=== PATIENT | female | born 1995 | race Caucasian/White ===

== ENCOUNTER 2017-09-16 21:26 | Emergency (ER) | payer OTHER, SELFPAY ==
[2017-09-16 21:26] VITALS: BP 139/79; PULSE 98; RESP 24; TEMP 37; O2SAT 94; BMI 40.0
--- NOTE | 2017-09-16 21:36 | EKG12_ITS ---
Test Reason : GENERAL ILLNESS Blood Pressure : / mmHG Vent. Rate : 070 BPM Atrial Rate : 070 BPM P-R Int : 124 ms QRS Dur : 082 ms QT Int : 378 ms P-R-T Axes : 029 038 021 degrees QTc Int : 408 ms Normal sinus rhythm Normal ECG Confirmed by CHAYO WILDER, KERON ([id number]), non linear editor ESTRELLA MCCLENDON ([id number] on 09/18/2017 10:25:02 AM Referred By: GEORGIANA Confirmed By:KERON DOMINGO MD
--- NOTE | 2017-09-16 21:42 | ED.DCSUM_ITS ---
- ER Visit Summary Date of Service: 09/16/17 Chief Complaint: Nausea and vomiting, dizzy History of Present Illness: The patient is a 22 F states she was sitting at rest night doing homework. She became nauseated and ran to the restroom. She had multiple episodes of vomiting. She does report some shortness of breath. She reports feeling lightheaded and dizzy. There is no chest pain or palpitations. She did have some mild diarrhea as well. Patient denies recent URI symptoms. She is a history of anxiety. She has an IUD in place. Physical Examination: Vital signs are unremarkable. Patient sitting upright in bed no acute distress. Head neck examination is grossly unremarkable. There is no nystagmus. Heart is regular rate and rhythm. Lung sounds are clear. Abdomen is soft nontender. Hypoactive bowel sounds are noted. Neuro exam is unremarkable. Test Results: CBC and chemistry studies normal. test is negative. EKG is sinus at 70 with normal intervals. Emergency Department Course and Treatment: She is given IV fluids and Zofran here. On repeat evaluation she feels significantly improved. She be given a prescription for Zofran at home pack for tonight. Treatment Plan: [] Disposition: Discharge Impression: Vomiting, improved This note was generated with [employer] dictation software. It may contain incorrect words, spelling, and punctuation that were not noted in review of the chart prior to signing ED Disposition - Plan for ED Patient: Chief Complaint: General Illness Referrals: Care Physician,No Primary [NON-STAFF] -
[2017-09-16] MEDS: Ondansetron 4 MG/2 ML Vial IV (21:45)
[2017-09-16 21:49] LABS: Absolute Neutrophil Count 7.4 X10^3/uL (2.0-7.7); Basophil# 0.02 X10^3/uL; Basophil% 0.2 % (0-1); Eosinophil# 0.07 X10^3/uL; Eosinophils% 0.7 % (0-5); Hematocrit 41.8 % (37-47); Hemoglobin 14.3 g/dl (12.0-15.0); Lymphocyte % 21.6 % (19-41); Mean Corp Hgb Conc 34.2 g/gl (32-36); Mean Corpuscular Hgb 30.6 pg (27.0-32.0); Mean Corpuscular Volume 89.5 fL (81-99); Mean Platelet Vol. 9.2 fl (6.2-12.0); Monocyte# 0.78 X10^3/uL; Monocyte% 7.3 % (0-10); Neutrophil # 7.44 X10^3/uL (2.7-7.7); POSITIVE COUNT NO; POSITIVE DIFFERENTIAL NO; POSITIVE MORPHOLOGY NO; Platelet Count 275 K/mm3 (150-450); RBC Distribution Width CV 12.3 % (11.6-14.6); RBC Distribution Width SD 39.9 fl (35.1-43.9); Red Blood Count 4.67 M/mm3 (4.2-5.4); White Blood Count 10.6 K/mm3 (4.4-11.0)
[2017-09-16 22:00] LABS: Anion Gap 11 (5-15); BUN 14 mg/dL (7-18); BUN/Creat Ratio 16.2 RATIO (10-20); Calcium,Total 9.4 mg/dL (8.5-10.1); Chloride 103 mmol/L (98-107); Creatinine, Serum 0.87 mg/dL (0.55-1.02); EST Glomerular Filtration Rate 89 mL/min (>60); Est Glom Filt Rate - Afr Amer 107 mL/min (>60); Estimated Creatinine Clearance 85.33 ml/min; Glucose 86 mg/dL (74-106); Potassium 3.7 mmol/L (3.5-5.1); Sodium Level 140 mmol/L (136-145)
[2017-09-16 22:13] LABS: Pregnancy, Serum, hCG Quali. NEGATIVE Negative (0-9 Nonpreg)
[2017-09-16] MEDS: 0.9% Normal Saline 1,000 ML 150 ML IV (22:24)
--- NOTE | 2017-09-16 22:41 | ED.DEP ---
ED Disposition - Plan for ED Patient: Disposition: Home or Assisted Living Chief Complaint: General Illness Instructions: ED Nausea Vomiting Prescriptions: Ondansetron [Zofran Odt] 4 mg PO Q8H PRN PRN #10 tablet PRN Reason: Nausea
[2017-09-16] MEDS: Ondansetron ODT 4 MG Tablet PO (23:03)
--- NOTE | 2017-09-16 23:06 | ED.RN ---
PT GIVEN AND EDUCATED DISCHARGE INSTRUCTIONS HOME GOING PRESCRIPTIONS AND HOME PACK. PT VERBALIZES UNDERSTANDING. IV D/C AND COVERED WITH 2X2 GAUZE AND PAPER TAPE. MINIMAL BLEEDING NOTED. PT DENIES ANY FURTHER QUESTIONS AND IS AMBUALTORY HOME BY SELF. NO ASSISTANCE FROM STAFF NEEDED.
[2017-09-16 23:08] VITALS: BP 110/79; PULSE 70; RESP 14; O2SAT 98
== END 2017-09-16 23:08 | disposition home or self-care (01) ==
PROVIDERS: Emergency Provider Emergency Medicine
DX: R11.2 Nausea with vomiting, unspecified (principal); R42 Dizziness and giddiness; R06.00 Dyspnea, unspecified; R19.7 Diarrhea, unspecified; F41.9 Anxiety disorder, unspecified; Z97.5 Presence of (intrauterine) contraceptive device
CPT/HCPCS: 80048; 84703; 85025; 93005; 96361; 96374; 99284; J7030; J7040; A4216; J2405

== ENCOUNTER 2018-11-07 05:56 | Emergency (ER) | payer OTHER, SELFPAY ==
[2018-11-07 05:57] VITALS: BP 136/72; PULSE 92; RESP 16; TEMP 36.8; O2SAT 96; BMI 37.9
--- NOTE | 2018-11-07 06:03 | ED.VISSUMM ---
- ER Visit Summary Date of Service: 11/07/18 Chief Complaint: Left medial thigh abscess History of Present Illness: The patient is a 23 F past medical history of depression and anxiety. Patient states last 2 days she is an abscess to her left medial thigh. No fever. No drainage. No prior history. Physical Examination: Well-appearing young female. Vital signs are stable. Afebrile. She does not look septic or toxic. She is in no distress. HEENT exam unremarkable. Lungs clear to auscultation bilaterally. Heart regular rhythm no murmur. Abdomen is soft and nontender. Normal bowel sounds no peritoneal signs. Patient moving all 4 extremities. Neurovascular intact. No edema. Left medial thigh proximal aspect she has about a quarter sized subcu abscess. This will need to be drained. No surrounding cellulitis. Mild tenderness to palpation. No necrotic skin. Neurologically she is awake alert with no focal motor deficits. Test Results: None Emergency Department Course and Treatment: Procedure note: Left medial thigh abscess incision and drainage. Let applied to the wound. Then locally anesthetized with subcu lidocaine. 1 inch incision was made with an 11 blade scalpel. Several cc of pus and blood were expressed. The wound was probed with forceps to break up any loculations. Packed with 1 inch gauze. Patient instructed in wound care and remove the packing in 4 days. Treatment Plan: Wound care. Warm shower hot bath. Tylenol Motrin for pain. Keflex 1 pill 4 times a day for 7 days. Follow-up with your doctor as needed. Disposition: Discharge Impression: Acute left thigh abscess Incision and drainage of abscess by her physician This note was generated with [employer] dictation software. It may contain incorrect words, spelling, and punctuation that were not noted in review of the chart prior to signing ED Disposition - Plan for ED Patient: Disposition: Home or Assisted Living Instructions: ED Abscess IandD Prescriptions: Cephalexin [Keflex] 500 mg PO Q6 #30 cap Referrals: NOT,DEFINED [NON-STAFF] - 1 Week if not improving Additional Instructions: Warm compresses to area, hot shower or soak in a warm bathtub. Tylenol Motrin for pain. The antibiotic Keflex 1 pill 4 times a day till gone.
--- NOTE | 2018-11-07 06:06 | ED.DEP ---
ED Disposition - Plan for ED Patient: Disposition: Home or Assisted Living Instructions: ED Abscess IandD Prescriptions: Cephalexin [Keflex] 500 mg PO Q6 #30 cap Referrals: NOT,DEFINED [Primary Care Provider] - 1 Week if not improving Additional Instructions: Warm compresses to area, hot shower or soak in a warm bathtub. Tylenol Motrin for pain. The antibiotic Keflex 1 pill 4 times a day till gone.
[2018-11-07] MEDS: Lidocaine/Epi/Tetracaine 50 ML 1 APPLIC TOPICAL (06:13)
[2018-11-07] MEDS: Cephalexin 250 MG Capsule 500 MG PO (06:40)
[2018-11-07 06:42] VITALS: BP 119/81; PULSE 96; O2SAT 96
== END 2018-11-07 06:43 | disposition home or self-care (01) ==
LOC: ED 06:16
PROVIDERS: Emergency Provider Emergency Medicine
DX: L02.416 Cutaneous abscess of left lower limb (principal); F32.9 Major depressive disorder, single episode, unspecified; F41.9 Anxiety disorder, unspecified
CPT/HCPCS: 10061; 10060; 99283

== ENCOUNTER 2018-11-07 16:44 | Inpatient (IN) | payer OTHER, SELFPAY ==
[2018-11-07] VITALS (7 sets, daily range): BP systolic 101–119; BP diastolic 63–69; PULSE 100–131; RESP 18; TEMP 37.5–39.1; O2SAT 93–99; BMI 37.9; BMI 38.2; BMI 37.5; BMI 37.6
--- NOTE | 2018-11-07 17:12 | ED.VISSUMM ---
- ER Visit Summary Date of Service: 11/07/18 Chief Complaint: Fever History of Present Illness: The patient is a 23 F presenting with fever. Patient was seen in the ED this morning for abscess left thigh. At that time she had I&D performed and was put on Keflex. She was advised to return to the ED if she had any fever. Her temperature was 102 at home. She did not take Tylenol or Motrin prior to arrival. She states she felt nauseated and had an episode of vomiting. Denies other complaints. Physical Examination: Vitals are stable. Temperature 99.5, heart rate 131. Alert no acute distress. HEENT exam is unremarkable. Neck is supple. Lungs are clear and equal bilaterally. Heart is regular and tachycardic Abdomen is soft nontender nondistended. Extremities left medial thigh erythema with packing in place Skin is warm and dry. No focal neurologic deficit. Remainder of exam is unremarkable. Emergency Department Course and Treatment: Patient was given IV fluids, Zofran, Tylenol. Patient was observed in the ED. She had improvement of her heart rate to 90s. She continues to be nauseated and she was given Phenergan. Due to her continued nausea she is concerned about her ability to keep her antibiotics down. She was given Ancef IV. Discussed with the hospitalist for observation. Disposition: Observation Impression: Left lower extremity cellulitis This note was generated with [employer] dictation software. It may contain incorrect words, spelling, and punctuation that were not noted in review of the chart prior to signing ED Disposition - Plan for ED Patient: Referrals: [facility] ,Out of [Primary Care Provider] -
--- NOTE | 2018-11-07 17:15 | ED.DCSUM_ITS ---
- ER Visit Summary Date of Service: 11/07/18 Chief Complaint: Fever History of Present Illness: The patient is a 23 F presenting with fever. Patient was seen in the ED this morning for abscess left thigh. At that time she had I&D performed and was put on Keflex. She was advised to return to the ED if she had any fever. Her temperature was 102 at home. She did not take Tylenol or Motrin prior to arrival. She states she felt nauseated and had an episode of vomiting. Denies other complaints. Physical Examination: Vitals are stable. Temperature 99.5, heart rate 131. Alert no acute distress. HEENT exam is unremarkable. Neck is supple. Lungs are clear and equal bilaterally. Heart is regular and tachycardic Abdomen is soft nontender nondistended. Extremities left medial thigh erythema with packing in place Skin is warm and dry. No focal neurologic deficit. Remainder of exam is unremarkable. Emergency Department Course and Treatment: Patient was given IV fluids, Zofran, Tylenol. Patient was observed in the ED. She had improvement of her heart rate to 90s. She continues to be nauseated and she was given Phenergan. Due to her continued nausea she is concerned about her ability to keep her antibiotics down. She was given Ancef IV. Discussed with the hospitalist for observation. Disposition: Observation Impression: Left lower extremity cellulitis This note was generated with [employer] dictation software. It may contain incorrect words, spelling, and punctuation that were not noted in review of the chart prior to signing ED Disposition - Plan for ED Patient: Referrals: [facility] ,Out of [Primary Care Provider] -
[2018-11-07] MEDS: 0.9% Normal Saline 1,000 ML 999 ML IV ×2 (17:26→18:28)
[2018-11-07] MEDS: Acetaminophen 500 MG Tablet 1000 MG PO (17:26)
[2018-11-07] MEDS: Ondansetron 4 MG/2 ML Vial IV (17:26)
[2018-11-07] MEDS: proMETHazine 25 MG/ML Syringe 6.25 MG IV (18:32)
--- NOTE | 2018-11-07 20:42 | ED.RN ---
PT USED CALL LIGHT TO HAVE DRESSING CHANGED TO LEFT INNER THIGH; THIS RN PLACED A NEW DRESSING AFTER CLEANING THE SITE WITH NORMAL SALINE
--- NOTE | 2018-11-07 22:03 | PCM.HP.STD ---
Problem List (1) Sepsis Status: Acute (2) Abscess Status: Acute History of Present Illness Date of Admission: 11/07/18 Chief Complaint: swelling at the left thigh. The patient is a 23 year old F with a significant history of depression and anxiety who presented to the emergency department with swelling of the left thigh that has been going on for 5 days. She presented earlier in the day and had an I&D of an abscess of the left thigh. She was discharged home on Keflex and she was instructed to come back to the ED if she has a fever of 100.4F or more . Because she developed a fever of 102.4 she came back to the emergency department. Associated with her symptoms is nausea, vomiting and chills. At emergency department patient was found to have tachycardia with highest heart rate of 131; and a fever of 102.4. T Past Medical History Medical History: Medical History (Last Updated 11/08/18 @ 07:37 by Levi Son MD) Anxiety F41.9 Depression F32.9 Allergies latex Allergy (Verified 11/07/18 16:47) Rash Home Medications: Ambulatory Orders Medication Instructions Recorded Aripiprazole [Abilify] 7.5 mg PO QHS 11/07/18 Cephalexin [Keflex] 500 mg PO Q6 11/07/18 Sertraline HCl [Zoloft] 125 mg PO QHS 11/07/18 Surgical History: - - Her wisdom tooth was pulled out Lives: - - Live at a college Smoking Status: Never smoker Alcohol: Occasional - *Family History Maternal History Items: - - Thyroid disease Paternal History Items: - - Patient does not know Review of Systems Constitutional: Reports: Chills, Fever HEENT: Denies: Head Aches, Sinus Congestion, Sinus Drainage Cardiovascular: Denies: Chest Pain, Palpitations Respiratory: Denies: Cough, Shortness of breath at rest, Sputum production Gastrointestinal: Reports: Nausea, Vomiting. Denies: Abdominal Pain Genitourinary: Denies: Dysuria Musculoskeletal: Denies: Joint Pain, Joint Tenderness Skin: Denies: Rash, Wounds Neurological: Denies: Numbness, Tingling, Focal weakness Psychiatric: Denies: Anxiety, Depression, Homicidal Ideations, Suicidal Ideations Hematologic/ Lymphatic: Denies: Easy Bruising, Easy Bleeding VTE Information - Inpt Only VTE Present on Admission: No VTE Mechan Device Prophylaxis: None VTE Pharm Prophylaxis ordered?: No Reason prophylaxis not ordered:: Treatment Not Indicated - Low risk Patient Problems: Active and Suspected Problems Sepsis (Acute) Abscess (Acute) - Physical Exam General: Alert, Oriented x3, Cooperative HEENT: Atraumatic, PERRLA, EOMI, Normocephalic Neck: Supple, No JVD, Negative Carotid Bruits Lungs: Clear to auscultation, Normal air movement Cardiovascular: No murmurs, Tachycardic Abdomen: Bowel Sounds Present, Soft, Non Tender Extremities: No edema, Capillary Refill Less than 3 Seconds, - - Left anterior thigh with induration and redness surrounding I&D area. Packing in incision; tender. Skin: No rashes, No breakdown Musculoskeletal: No Tenderness to Palpation of Joints or Extremities Neurological: Neuro grossly intact Psych/Mental Status: Normal Affect, Appropriate Vital Signs Temp Pulse Resp BP Pulse Ox 99.9 F H 114 H 18 101/63 93 11/07/18 19:52 11/07/18 17:14 11/07/18 16:47 11/07/18 16:47 11/07/18 16:47 Oxygen Delivery Method Room Air Weight: 104.3 kg Body Mass Index (BMI) 38.2 Laboratory Tests Past 24 Hrs 11/07/18 11/07/18 21:50 21:50 WBC Pending RBC Pending Hgb Pending Hct Pending MCV Pending MCH Pending MCHC Pending RDW Pending RDW Differential Pending Plt Count Pending Neut % (Auto) Pending Absolute Neuts (auto) Pending Total Counted Pending Sodium Pending Potassium Pending Chloride Pending Carbon Dioxide Pending Anion Gap Pending BUN Pending Creatinine Pending Est GFR (MDRD) Af Amer Pending Est GFR (MDRD) Non-Af Pending BUN/Creatinine Ratio Pending Glucose Pending Calcium Pending Assessment/Plan All Active Problems Sepsis (Acute) Abscess (Acute) The patient is a 23 year old F with a significant history of depression and anxiety who presented to the emergency department the second time after a first an I&D of an abscess of the left thigh and found to be in sepsis. Sepsis secondary to abscess and cellulitis With Sirs criteria of T-max of 102.4; tachycardia with heart rate of 131; with source of infection as abscess and cellulitis of left thigh. Hold Keflex p.o. since patient has nausea and vomiting. Ancef 2 g ordered at emergency department and to continue every 6 hours. Loading dose of vancomycin given. Pharmacy to dose vancomycin thereafter Oxycodone as needed for moderate pain Morphine IV as needed for severe pain Tylenol for fever of 100.7 or mild pain Gentle IV hydration As needed Zofran for nausea; ordered bowel protocol with Senokot-S in the setting of narcotic administration. Continue iodoform packing in I&D area; and Kerlix roll. Change daily. Depression and anxiety Abilify and sertraline continued. DVT prophylaxis Low risk Encouraged to ambulate. Code Visit Inpatient E&M: 41306 Init Hosp L3
[2018-11-07 22:08] LABS: Absolute Lymphocyte Count 1.28 X10^3/ul (0.83-4.51); Absolute Neutrophil Count 8.1 X10^3/uL (2.0-7.7); Basophil# 0.01 X10^3/uL; Basophil% 0.1 % (0-1); Hematocrit 37.9 % (37-47); Hemoglobin 12.9 g/dl (12.0-15.0); Lymphocyte # 1.28 X10^3/ul (4.0); Lymphocyte % 12.9 % (19-41); Mean Corpuscular Volume 91.1 fL (81-99); Mean Platelet Vol. 9.3 fl (6.2-12.0); Monocyte# 0.48 X10^3/uL; Monocyte% 4.8 % (0-10); Neutrophil # 8.14 X10^3/uL (2.7-7.7); Neutrophil % 82.1 % (47-70); POSITIVE COUNT NO; POSITIVE DIFFERENTIAL NO; POSITIVE MORPHOLOGY NO; Platelet Count 226 K/mm3 (150-450); RBC Distribution Width CV 12.4 % (11.6-14.6); RBC Distribution Width SD 41.1 fl (35.1-43.9); Red Blood Count 4.16 M/mm3 (4.2-5.4); White Blood Count 9.9 K/mm3 (4.4-11.0)
[2018-11-07 22:22] LABS: Anion Gap 5 (5-15); BUN 9 mg/dL (7-18); BUN/Creat Ratio 10.9 RATIO (10-20); Calcium,Total 8.3 mg/dL (8.5-10.1); Chloride 109 mmol/L (98-107); Creatinine, Serum 0.83 mg/dL (0.55-1.02); EST Glomerular Filtration Rate 92 mL/min (>60); Est Glom Filt Rate - Afr Amer 112 mL/min (>60); Estimated Creatinine Clearance 96.48 ml/min; Glucose 96 mg/dL (74-106); Potassium 3.8 mmol/L (3.5-5.1); Sodium Level 141 mmol/L (136-145)
[2018-11-08] VITALS (8 sets, daily range): BP systolic 96–134; BP diastolic 59–72; PULSE 73–101; RESP 16–20; TEMP 37.1–38.3; O2SAT 92–97
[2018-11-08] MEDS: 0.9% Normal Saline 1,000 ML 100 ML IV (00:31)
[2018-11-08] MEDS: oxyCODONE 5 MG Tablet PO (00:40)
[2018-11-08] MEDS: Cefazolin 2 GM in 0.9% Normal Saline 100 ML IV ×4 (00:41→22:08)
[2018-11-08] MEDS: 0.9% NaCl Peripheral Flush Adult/Peds IV (01:00)
--- NOTE | 2018-11-08 01:54 | PCM.RX.CS ---
Consult Pharmacy has been consulted to manage selected antiobiotic: Vancomycin Type of Consult: New start Suspected Infection: Skin/Soft tissue Prior Doses of Antibiotics Received/Current Regimen: Medications Vancomycin HCl 2,000 mg/ (Sodium Chloride) 540 mls @ 250 mls/hr IV Q12H SAMUEL Discontinued Medications Vancomycin HCl 2,000 mg/ (Sodium Chloride) 540 mls @ 250 mls/hr IV X1 ONE Stop: 11/08/18 01:09 Last Admin: 11/08/18 01:34 Dose: 250 mls/hr Labs: Sodium 141 mmol/L (136-145) 11/07/18 21:50 Potassium 3.8 mmol/L (3.5-5.1) 11/07/18 21:50 Chloride 109 mmol/L (98-107) H 11/07/18 21:50 Carbon Dioxide 27.0 mmol/L (21.0-32.0) 11/07/18 21:50 Anion Gap 5 (5-15) 11/07/18 21:50 BUN 9 mg/dL (7-18) 11/07/18 21:50 Creatinine 0.83 mg/dL (0.55-1.02) 11/07/18 21:50 Est GFR (MDRD) Af Amer 112 mL/min (>60) 11/07/18 21:50 Est GFR (MDRD) Non-Af 92 mL/min (>60) 11/07/18 21:50 BUN/Creatinine Ratio 10.9 RATIO (10-20) 11/07/18 21:50 Glucose 96 mg/dL (74-106) 11/07/18 21:50 Weight used for dosin.3 kg Estimated Creatinine Clearance: 96 Goal Trough: 15-20 mcg/mL Pharmacy Plan for Drug Dosing: Pharmacy Service will continue to monitor and adjust dosing as required. Follow-Up Labs: Trough Vancomycin Labs to be done on [date and time ordered]: 11/09/18 @1300
[2018-11-08 06:07] LABS: Absolute Lymphocyte Count 1.51 X10^3/ul (0.83-4.51); Absolute Neutrophil Count 5.9 X10^3/uL (2.0-7.7); Basophil# 0.01 X10^3/uL; Basophil% 0.1 % (0-1); Hematocrit 36.5 % (37-47); Hemoglobin 12.1 g/dl (12.0-15.0); Lymphocyte # 1.51 X10^3/ul (4.0); Lymphocyte % 19.1 % (19-41); Mean Corp Hgb Conc 33.2 g/gl (32-36); Mean Corpuscular Hgb 30.5 pg (27.0-32.0); Mean Corpuscular Volume 91.9 fL (81-99); Mean Platelet Vol. 9.3 fl (6.2-12.0); Monocyte# 0.44 X10^3/uL; Monocyte% 5.6 % (0-10); Neutrophil # 5.94 X10^3/uL (2.7-7.7); Neutrophil % 74.9 % (47-70); Platelet Count 220 K/mm3 (150-450); RBC Distribution Width CV 12.4 % (11.6-14.6); RBC Distribution Width SD 42.2 fl (35.1-43.9); Red Blood Count 3.97 M/mm3 (4.2-5.4); White Blood Count 7.9 K/mm3 (4.4-11.0)
[2018-11-08 06:11] LABS: POSITIVE COUNT NO; POSITIVE DIFFERENTIAL NO; POSITIVE MORPHOLOGY NO
[2018-11-08 06:28] LABS: Anion Gap 6 (5-15); BUN 8 mg/dL (7-18); BUN/Creat Ratio 8.5 RATIO (10-20); Calcium,Total 8.2 mg/dL (8.5-10.1); Chloride 107 mmol/L (98-107); Creatinine, Serum 0.94 mg/dL (0.55-1.02); EST Glomerular Filtration Rate 80 mL/min (>60); Est Glom Filt Rate - Afr Amer 97 mL/min (>60); Estimated Creatinine Clearance 85.19 ml/min; Glucose 99 mg/dL (74-106); Potassium 3.6 mmol/L (3.5-5.1); Sodium Level 139 mmol/L (136-145)
[2018-11-08] MEDS: Senna/Docusate Sodium 1 Tablet PO (09:19)
--- NOTE | 2018-11-08 12:05 | CASEMGMT ---
RN FREDERIC Face to Face with patient for initial transition planning/care coordination assessment. RN CM introduced self and role at [facility]. Patient lying in bed, alert and oriented. Patient willing to participate in assessment and is able to answer all questions appropriately. Care providers, pharmacy, and demographics verified. Patient wishes to discharge home, denies need for home health at this time. Patient states she has no further needs or concerns at this time. CM to follow for discharge planning needs that may arise. PCP: Madeleine Villalta Specialists: None [facility]erred Pharmacy: [facility] Insurance: Cign[employer] Prescription Benefit: Yes Living Will/HPOA: None LNOK: Mother Living Arrangements: Patient attend [employer] and lives in the dorms Transportation: self DME/HHC: None Disposition Plan: Patient to discharge to dorms with follow-up plans in place. Macy OWENS, RN, CM
--- NOTE | 2018-11-08 12:20 | PN_ITS ---
<Johnson Looney - Last Filed: 11/08/18 12:13> Patient Problems: Active and Suspected Problems (Last Updated 11/08/18 @ 07:37 by Levi Son MD) Sepsis (Acute) Abscess (Acute) Subjective: Still with chills/ subjective fevers/sweats. Still drainage from wound. Last fever about 0100 today. Pain - currently controlled. Pt does not know how this happened - states it spontaneously developed with no trauma to the area. She denies prior skin infections. - Physical Exam General: Alert, Oriented x3, Cooperative HEENT: Atraumatic, PERRLA, EOMI, Normocephalic Neck: Supple, No JVD, Negative Carotid Bruits Lungs: Clear to auscultation, Normal air movement Cardiovascular: Regular rate, No murmurs Abdomen: Bowel Sounds Present, Soft, Non Tender Extremities: No edema, Capillary Refill Less than 3 Seconds Skin: Ulcer/ Wound - left thigh abscess,s/p I&D, drainage, surrounding erythema. Musculoskeletal: No Tenderness to Palpation of Joints or Extremities Neurological: Cranial nerves II-XII grossly intact Psych/Mental Status: Normal Affect, Appropriate, Alert and oriented to time, place, person, mood and affect Vital Signs Temp Pulse Resp BP Pulse Ox 98.7 F 79 16 109/66 96 11/08/18 08:49 11/08/18 08:49 11/08/18 08:49 11/08/18 08:49 11/08/18 08:49 Oxygen Delivery Method Room Air Weight: 226 lb Body Mass Index (BMI) 37.5 Intake and Output for Last 24 Hours 11/06/18 11/07/18 11/08/18 23:59 23:59 23:59 Intake Total 1154 / 1154 Output Total 200 / 200 Balance 954 / 954 Laboratory Tests Past 24 Hrs 11/07/18 11/07/18 11/07/18 21:50 21:50 21:50 WBC 9.9 RBC 4.16 L Hgb 12.9 Hct 37.9 MCV 91.1 MCH 31.0 MCHC 34.0 RDW 12.4 RDW Differential 41.1 Plt Count 226 MPV 9.3 Immature Gran % (Auto) 0.100 Neut % (Auto) 82.1 H Lymph % (Auto) 12.9 L Branch % (Auto) 4.8 Eos % (Auto) 0.0 Baso % (Auto) 0.1 Absolute Neuts (auto) 8.1 H Absolute Lymphs (auto) 1.28 Total Counted Not Reportable Sodium 141 Potassium 3.8 Chloride 109 H Carbon Dioxide 27.0 Anion Gap 5 BUN 9 Creatinine 0.83 Estim Creat Clear Calc 96.48 Est GFR (MDRD) Af Amer 112 Est GFR (MDRD) Non-Af 92 BUN/Creatinine Ratio 10.9 Glucose 96 Lactic Acid 1.0 Calcium 8.3 L 11/08/18 11/08/18 05:25 05:25 WBC 7.9 RBC 3.97 L Hgb 12.1 Hct 36.5 L MCV 91.9 MCH 30.5 MCHC 33.2 RDW 12.4 RDW Differential 42.2 Plt Count 220 MPV 9.3 Immature Gran % (Auto) 0.300 Neut % (Auto) 74.9 H Lymph % (Auto) 19.1 Branch % (Auto) 5.6 Eos % (Auto) 0.0 Baso % (Auto) 0.1 Absolute Neuts (auto) 5.9 Absolute Lymphs (auto) 1.51 Total Counted Not Reportable Sodium 139 Potassium 3.6 Chloride 107 Carbon Dioxide 26.0 Anion Gap 6 BUN 8 Creatinine 0.94 Estim Creat Clear Calc 85.19 Est GFR (MDRD) Af Amer 97 Est GFR (MDRD) Non-Af 80 BUN/Creatinine Ratio 8.5 L Glucose 99 Lactic Acid Calcium 8.2 L Medical Necessity - Tobacco Use Smoking Status: Never smoker Assessment/Plan All Active Problems (Last Updated 11/08/18 @ 07:37 by Levi Son MD) Sepsis (Acute) Abscess (Acute) 1. Acute sepsis 2/2 Cellulitis and abscess left thigh - culture drainage, MRSA/MSSA screen. Vanc/Zosyn. I&D done in the ER. last fever 0100 today. Tachycardia resolved. Lactate neg. No leukocytosis. 2. Obesity - dietary consulted 3. Depression - home meds DVT ppx: early ambulation DC planning: monitor wound, follow cx, young and healthy otherwise, doubt additional homegoing needs. This patient was seen by Johnson Looney PA-C under the supervision of Dr. Cooper <Jeri Cooper - Last Filed: 11/08/18 14:24> - Physical Exam Vital Signs Temp Pulse Resp BP Pulse Ox 98.7 F 79 16 109/66 96 11/08/18 08:49 11/08/18 08:49 11/08/18 08:49 11/08/18 08:49 11/08/18 08:49 Oxygen Delivery Method Room Air Weight: 225 lb 15.934 oz Body Mass Index (BMI) 37.5 Intake and Output for Last 24 Hours 11/06/18 11/07/18 11/08/18 23:59 23:59 23:59 Intake Total 1154 / 1154 Output Total 200 / 200 Balance 954 / 954 Laboratory Tests Past 24 Hrs 11/07/18 11/07/18 11/07/18 21:50 21:50 21:50 WBC 9.9 RBC 4.16 L Hgb 12.9 Hct 37.9 MCV 91.1 MCH 31.0 MCHC 34.0 RDW 12.4 RDW Differential 41.1 Plt Count 226 MPV 9.3 Immature Gran % (Auto) 0.100 Neut % (Auto) 82.1 H Lymph % (Auto) 12.9 L Branch % (Auto) 4.8 Eos % (Auto) 0.0 Baso % (Auto) 0.1 Absolute Neuts (auto) 8.1 H Absolute Lymphs (auto) 1.28 Total Counted Not Reportable Sodium 141 Potassium 3.8 Chloride 109 H Carbon Dioxide 27.0 Anion Gap 5 BUN 9 Creatinine 0.83 Estim Creat Clear Calc 96.48 Est GFR (MDRD) Af Amer 112 Est GFR (MDRD) Non-Af 92 BUN/Creatinine Ratio 10.9 Glucose 96 Lactic Acid 1.0 Calcium 8.3 L S.aureus Protein A PCR MRSA (PCR) 11/08/18 11/08/18 11/08/18 05:25 05:25 13:10 WBC 7.9 RBC 3.97 L Hgb 12.1 Hct 36.5 L MCV 91.9 MCH 30.5 MCHC 33.2 RDW 12.4 RDW Differential 42.2 Plt Count 220 MPV 9.3 Immature Gran % (Auto) 0.300 Neut % (Auto) 74.9 H Lymph % (Auto) 19.1 Branch % (Auto) 5.6 Eos % (Auto) 0.0 Baso % (Auto) 0.1 Absolute Neuts (auto) 5.9 Absolute Lymphs (auto) 1.51 Total Counted Not Reportable Sodium 139 Potassium 3.6 Chloride 107 Carbon Dioxide 26.0 Anion Gap 6 BUN 8 Creatinine 0.94 Estim Creat Clear Calc 85.19 Est GFR (MDRD) Af Amer 97 Est GFR (MDRD) Non-Af 80 BUN/Creatinine Ratio 8.5 L Glucose 99 Lactic Acid Calcium 8.2 L S.aureus Protein A PCR Pending MRSA (PCR) Pending Assessment/Plan Patient seen by Johnson Looney PA-C under my supervision Patient was admitted with a complaint of fever. Patient had been seen in the ED the night before where she had incision and drainage of an abscess on her inner left thigh. She was sent home and told to come back to the ED if her temperature went higher than 100.4 degrees. At home, her temperature peaked at around 102 Fahrenheit so she decided to come into the ED. She denied any chills, cough or chest pain, palpitations, dizziness, diarrhea vomiting. She denied any increased drainage from the wound. She is been managed for sepsis due to left thigh abscess. o/e: Vital Signs Height 5 ft 5 in Weight: 225 lb 15.934 oz Weight in Pounds 226.0 lbs Pulse Ox 96 Temperature 98.7 F Pulse Rate 79 Respiratory Rate 16 Blood Pressure 109/66 Blood Pressure Position Semi-Fowlers General: Alert, Oriented x3, Cooperative HEENT: Atraumatic, PERRLA, EOMI, Normocephalic Neck: Supple, No JVD, Negative Carotid Bruits Lungs: Clear to auscultation, Normal air movement Cardiovascular: Regular rate, No murmurs Abdomen: Bowel Sounds Present, Soft, Non Tender Extremities: No edema, Capillary Refill Less than 3 Seconds Skin: Ulcer/ Wound - left thigh abscess,s/p I&D, drainage, wound pack in place, mild surrounding erythema delineated by body marker Musculoskeletal: No Tenderness to Palpation of Joints or Extremities Neurological: Cranial nerves II-XII grossly intact Psych/Mental Status: Normal Affect, Appropriate, Alert and oriented to time, place, person, mood and affect Plan is to continue with IV vancomycin and cefazolin. Await blood culture results. She has no leucocytosis. Encourage ambulation for DVT prophylaxis. Rest of management as per Johnson Looney PA-C's note, which I have reviewed, and endorse. Code Visit Inpatient E&M: [id number] Subs Hosp L3
--- NOTE | 2018-11-08 14:13 | NURSING ---
wound photo: left inner thigh
[2018-11-08 15:57] LABS: M R Staph aureus DNA By PCR Negative (Negative); Probe Check PASS; Specimen Processing Control PASS; Staph aureus DNA By PCR NEGATIVE (Negative)
[2018-11-08] MEDS: Acetaminophen 325 MG Tablet 650 MG PO (19:56)
[2018-11-08] MEDS: Sertraline 100 MG Tablet PO (22:07)
[2018-11-08] MEDS: ARIPiprazole 5 MG Tablet 7.5 MG PO (22:07)
[2018-11-08] MEDS: Sertraline 50 MG Tablet 25 MG PO (22:08)
[2018-11-09 01:44] VITALS: BP 102/67; PULSE 57; RESP 18; TEMP 36.6; O2SAT 96
[2018-11-09] MEDS: Cefazolin 2 GM in 0.9% Normal Saline 100 ML IV ×3 (05:41→22:18)
[2018-11-09 05:50] LABS: Anion Gap 6 (5-15); BUN 9 mg/dL (7-18); BUN/Creat Ratio 11.4 RATIO (10-20); Calcium,Total 8.5 mg/dL (8.5-10.1); Chloride 109 mmol/L (98-107); Creatinine, Serum 0.79 mg/dL (0.55-1.02); EST Glomerular Filtration Rate 98 mL/min (>60); Est Glom Filt Rate - Afr Amer 118 mL/min (>60); Estimated Creatinine Clearance 101.36 ml/min; Glucose 95 mg/dL (74-106); Potassium 3.6 mmol/L (3.5-5.1); Sodium Level 142 mmol/L (136-145)
[2018-11-09 05:56] LABS: Absolute Lymphocyte Count 2.31 X10^3/ul (0.83-4.51); Absolute Neutrophil Count 2.8 X10^3/uL (2.0-7.7); Basophil# 0.02 X10^3/uL; Basophil% 0.3 % (0-1); Eosinophil# 0.13 X10^3/uL; Eosinophils% 2.2 % (0-5); Hemoglobin 13.2 g/dl (12.0-15.0); Lymphocyte # 2.31 X10^3/ul (4.0); Lymphocyte % 39.5 % (19-41); Mean Corp Hgb Conc 33.8 g/gl (32-36); Mean Corpuscular Hgb 30.7 pg (27.0-32.0); Mean Corpuscular Volume 90.7 fL (81-99); Mean Platelet Vol. 9.5 fl (6.2-12.0); Monocyte# 0.54 X10^3/uL; Monocyte% 9.2 % (0-10); Neutrophil # 2.84 X10^3/uL (2.7-7.7); Neutrophil % 48.6 % (47-70); Platelet Count 215 K/mm3 (150-450); RBC Distribution Width CV 12.2 % (11.6-14.6); RBC Distribution Width SD 39.7 fl (35.1-43.9); White Blood Count 5.9 K/mm3 (4.4-11.0)
[2018-11-09 06:01] LABS: Differential Indicated SCAN CRITERIA MET; POSITIVE COUNT NO; POSITIVE DIFFERENTIAL NO; POSITIVE MORPHOLOGY YES
[2018-11-09 06:50] LABS: Differential Comment SCANNED
[2018-11-09] MEDS: Ondansetron 4 MG/2 ML Vial IV ×2 (07:26→18:23)
[2018-11-09 08:57] VITALS: BP 120/74; PULSE 85; RESP 16; TEMP 36.8; O2SAT 98
[2018-11-09 09:17] LABS: Hemoglobin A1c 4.8 % (4.2-6.3)
[2018-11-09] MEDS: Senna/Docusate Sodium 1 Tablet PO (09:24)
--- NOTE | 2018-11-09 11:04 | PCM.PROGNOTE ---
<Johnson Looney - Last Filed: 11/09/18 11:04> Patient Problems: Active and Suspected Problems (Last Updated 11/08/18 @ 07:37 by Levi Son MD) Sepsis (Acute) Abscess (Acute) Subjective: Subjective fever and chills overnight. Purulent drainage continues per patient, tho none appreciated during exam. No other complaints. Awaiting final C/S. - Physical Exam General: Alert, Oriented x3, Cooperative HEENT: Atraumatic, PERRLA, EOMI, Normocephalic Neck: Supple, No JVD, Negative Carotid Bruits Lungs: Clear to auscultation, Normal air movement Cardiovascular: Regular rate, No murmurs Abdomen: Bowel Sounds Present, Soft, Non Tender, Obese Extremities: No edema, Capillary Refill Less than 3 Seconds Skin: No rashes, No breakdown, - - left inner thigh abscess, mild surrounding induration, wick in place, currently no expressible drainage. Surrounding erythema drastically reduced. Musculoskeletal: No Tenderness to Palpation of Joints or Extremities Neurological: Cranial nerves II-XII grossly intact Psych/Mental Status: Normal Affect, Appropriate, Alert and oriented to time, place, person, mood and affect Vital Signs Temp Pulse Resp BP Pulse Ox 98.3 F 85 16 120/74 98 11/09/18 08:57 11/09/18 08:57 11/09/18 08:57 11/09/18 08:57 11/09/18 08:57 Oxygen Delivery Method Room Air Weight: 225 lb 15.934 oz Body Mass Index (BMI) 37.5 Intake and Output for Last 24 Hours 11/07/18 11/08/18 11/09/18 23:59 23:59 23:59 Intake Total 1154 / 1154 2850 / 2850 Output Total 200 / 200 1650 / 1650 Balance 954 / 954 1200 / 1200 Microbiology Past 72 Hours 11/08/18 13:10 Gram Stain - Final Wound - Leg, Left Wound Culture - Preliminary No growth-Final to follow Laboratory Tests Past 24 Hrs 11/08/18 11/09/18 11/09/18 13:10 05:00 05:00 WBC 5.9 RBC 4.30 Hgb 13.2 Hct 39.0 MCV 90.7 MCH 30.7 MCHC 33.8 RDW 12.2 RDW Differential 39.7 Plt Count 215 MPV 9.5 Immature Gran % (Auto) 0.200 Neut % (Auto) 48.6 Lymph % (Auto) 39.5 [place] % (Auto) 9.2 Eos % (Auto) 2.2 Baso % (Auto) 0.3 Absolute Neuts (auto) 2.8 Absolute Lymphs (auto) 2.31 Total Counted Not Reportable Differential Comment SCANNED Sodium 142 Potassium 3.6 Chloride 109 H Carbon Dioxide 27.0 Anion Gap 6 BUN 9 Creatinine 0.79 Estim Creat Clear Calc 101.36 Est GFR (MDRD) Af Amer 118 Est GFR (MDRD) Non-Af 98 BUN/Creatinine Ratio 11.4 Glucose 95 Hemoglobin A1c Calcium 8.5 S.aureus Protein A PCR NEGATIVE MRSA (PCR) Negative 11/09/18 05:00 WBC RBC Hgb Hct MCV MCH MCHC RDW RDW Differential Plt Count MPV Immature Gran % (Auto) Neut % (Auto) Lymph % (Auto) [place] % (Auto) Eos % (Auto) Baso % (Auto) Absolute Neuts (auto) Absolute Lymphs (auto) Total Counted Differential Comment Sodium Potassium Chloride Carbon Dioxide Anion Gap BUN Creatinine Estim Creat Clear Calc Est GFR (MDRD) Af Amer Est GFR (MDRD) Non-Af BUN/Creatinine Ratio Glucose Hemoglobin A1c 4.8 Calcium S.aureus Protein A PCR MRSA (PCR) Medical Necessity - Tobacco Use Smoking Status: Never smoker Assessment/Plan All Active Problems (Last Updated 11/08/18 @ 07:37 by Levi Son MD) Sepsis (Acute) Abscess (Acute) 1. Acute sepsis 2/2 Cellulitis and abscess left thigh - culture drainage, MRSA/MSSA negative. Vanc/Zosyn. I&D done in the ER.Tachycardia resolved. Await final C/S. 2. Obesity - dietary consulted. A1C negative. 3. Depression - home meds DVT ppx: early ambulation - encouraged OOB with ambulating in the halls today. DC planning: monitor wound, follow cx, young and healthy otherwise, doubt additional homegoing needs. This patient was seen by Johnson Looney PA-C under the supervision of Dr. Cooper <Jeri Cooper - Last Filed: 11/09/18 15:42> - Physical Exam Vital Signs Temp Pulse Resp BP Pulse Ox 98.5 F 74 16 100/68 98 11/09/18 14:41 11/09/18 14:41 11/09/18 14:41 11/09/18 14:41 11/09/18 14:41 Oxygen Delivery Method Room Air Weight: 225 lb 15.934 oz Body Mass Index (BMI) 37.5 Intake and Output for Last 24 Hours 11/07/18 11/08/18 11/09/18 23:59 23:59 23:59 Intake Total 1154 / 1154 2850 / 2850 Output Total 200 / 200 1650 / 1650 Balance 954 / 954 1200 / 1200 Microbiology Past 72 Hours 11/08/18 13:10 Gram Stain - Final Wound - Leg, Left Wound Culture - Preliminary No growth-Final to follow Laboratory Tests Past 24 Hrs 11/08/18 11/09/18 11/09/18 13:10 05:00 05:00 WBC 5.9 RBC 4.30 Hgb 13.2 Hct 39.0 MCV 90.7 MCH 30.7 MCHC 33.8 RDW 12.2 RDW Differential 39.7 Plt Count 215 MPV 9.5 Immature Gran % (Auto) 0.200 Neut % (Auto) 48.6 Lymph % (Auto) 39.5 [place] % (Auto) 9.2 Eos % (Auto) 2.2 Baso % (Auto) 0.3 Absolute Neuts (auto) 2.8 Absolute Lymphs (auto) 2.31 Total Counted Not Reportable Differential Comment SCANNED Sodium 142 Potassium 3.6 Chloride 109 H Carbon Dioxide 27.0 Anion Gap 6 BUN 9 Creatinine 0.79 Estim Creat Clear Calc 101.36 Est GFR (MDRD) Af Amer 118 Est GFR (MDRD) Non-Af 98 BUN/Creatinine Ratio 11.4 Glucose 95 Hemoglobin A1c Calcium 8.5 Vancomycin Trough S.aureus Protein A PCR NEGATIVE MRSA (PCR) Negative 11/09/18 11/09/18 05:00 12:35 WBC RBC Hgb Hct MCV MCH MCHC RDW RDW Differential Plt Count MPV Immature Gran % (Auto) Neut % (Auto) Lymph % (Auto) [place] % (Auto) Eos % (Auto) Baso % (Auto) Absolute Neuts (auto) Absolute Lymphs (auto) Total Counted Differential Comment Sodium Potassium Chloride Carbon Dioxide Anion Gap BUN Creatinine Estim Creat Clear Calc Est GFR (MDRD) Af Amer Est GFR (MDRD) Non-Af BUN/Creatinine Ratio Glucose Hemoglobin A1c 4.8 Calcium Vancomycin Trough 14.4 S.aureus Protein A PCR MRSA (PCR) Assessment/Plan Patient seen by Johnson Looney PA-C under my supervision Patient seen and examined. She complained of vomiting once in the early hours of the morning. She denied any fever, chills, palpitations, dizziness or diarrhea. She says redness over inner left thigh has improved significantly. She did say she was having some drainage from the area. o/e: Vital Signs Height 5 ft 5 in Weight: 225 lb 15.934 oz Weight in Pounds 226.0 lbs Pulse Ox 98 Temperature 98.5 F Pulse Rate 74 Respiratory Rate 16 Blood Pressure 100/68 Blood Pressure Position Semi-Fowlers General: Alert, Oriented x3, Cooperative HEENT: Atraumatic, PERRLA, EOMI, Normocephalic Neck: Supple, No JVD, Negative Carotid Bruits Lungs: Clear to auscultation, Normal air movement Cardiovascular: Regular rate, No murmurs Abdomen: Bowel Sounds Present, Soft, Non Tender Extremities: No edema, Capillary Refill Less than 3 Seconds Skin: Ulcer/ Wound - left thigh abscess,s/p I&D, drainage, wound pack in place, surrounding erythema has improved significantly. Musculoskeletal: No Tenderness to Palpation of Joints or Extremities Neurological: Cranial nerves II-XII grossly intact Psych/Mental Status: Normal Affect, Appropriate, Alert and oriented to time, place, person, mood and affect Plan is to continue with IV vancomycin and cefazolin. Await blood culture results. She has no leucocytosis. SCDs for DVT prophylaxis. Plan discussed with patient's mother on the phone, and her concerns addressed. Will switch to PO antibiotics tomorrow if she remains afebrile and has no leucocytosis Rest of management as per Johnson Looney PA-C's note, which I have reviewed, and endorse. Code Visit Inpatient E&M: 02044 Subs Hosp L2
[2018-11-09 13:30] LABS: Vancomycin, Trough Level 14.4 ug/mL (5.0-15.0)
[2018-11-09 14:41] VITALS: BP 100/68; PULSE 74; RESP 16; TEMP 36.9; O2SAT 98
--- NOTE | 2018-11-09 15:47 | PCM.RX.CS ---
Consult Pharmacy has been consulted to manage selected antiobiotic: Vancomycin Type of Consult: Follow-up Suspected Infection: Sepsis, Skin/Soft tissue Prior Doses of Antibiotics Received/Current Regimen: Currently on 2000mg IV q12h with the last 2 doses given today at 01:42 and 14:10. Labs: Sodium 142 mmol/L (136-145) 11/09/18 05:00 Potassium 3.6 mmol/L (3.5-5.1) 11/09/18 05:00 Chloride 109 mmol/L (98-107) H 11/09/18 05:00 Carbon Dioxide 27.0 mmol/L (21.0-32.0) 11/09/18 05:00 Anion Gap 6 (5-15) 11/09/18 05:00 BUN 9 mg/dL (7-18) 11/09/18 05:00 Creatinine 0.79 mg/dL (0.55-1.02) 11/09/18 05:00 Est GFR (MDRD) Af Amer 118 mL/min (>60) 11/09/18 05:00 Est GFR (MDRD) Non-Af 98 mL/min (>60) 11/09/18 05:00 BUN/Creatinine Ratio 11.4 RATIO (10-20) 11/09/18 05:00 Glucose 95 mg/dL (74-106) 11/09/18 05:00 Vancomycin Trough 14.4 ug/mL (5.0-15.0) 11/09/18 12:35 Microbiology: Microbiology 11/08/18 13:10 Wound - Leg, Left Gram Stain - Final 11/08/18 13:10 Wound - Leg, Left Wound Culture - Preliminary No growth-Final to follow Estimated Creatinine Clearance: 101 ml/min Goal Trough: 15-20 mcg/mL Pharmacy Plan for Drug Dosing: Trough obtained today at 12:35 (11 hours after the previous dose) was 14.4 mg/L, which is only slightly out of the goal range of 15-20. Therefore, the plan is to keep the patient on the current regimen and get another trough in a couple days to make sure the trough is trending upward. Pharmacy Service will continue to monitor and adjust dosing as required. Follow-Up Labs: Trough Vancomycin Labs to be done on [date and time ordered]: 11/11/18 at 13:30
[2018-11-09] MEDS: Acetaminophen 325 MG Tablet 650 MG PO (19:20)
[2018-11-09] MEDS: oxyCODONE 5 MG Tablet PO (19:20)
[2018-11-09 20:08] VITALS: BP 120/79; PULSE 73; RESP 16; TEMP 37.2; O2SAT 95
[2018-11-09] MEDS: Sertraline 50 MG Tablet 25 MG PO (22:18)
[2018-11-09] MEDS: Sertraline 100 MG Tablet PO (22:18)
[2018-11-09] MEDS: ARIPiprazole 5 MG Tablet 7.5 MG PO (22:19)
[2018-11-10 02:10] VITALS: BP 104/56; PULSE 55; RESP 16; TEMP 36.4; O2SAT 95
[2018-11-10] MEDS: Cefazolin 2 GM in 0.9% Normal Saline 100 ML IV (05:43)
[2018-11-10 05:58] LABS: Absolute Lymphocyte Count 2.75 X10^3/ul (0.83-4.51); Absolute Neutrophil Count 2.8 X10^3/uL (2.0-7.7); Basophil# 0.02 X10^3/uL; Basophil% 0.3 % (0-1); Eosinophil# 0.18 X10^3/uL; Eosinophils% 2.9 % (0-5); Hematocrit 39.8 % (37-47); Hemoglobin 13.3 g/dl (12.0-15.0); Lymphocyte # 2.75 X10^3/ul (4.0); Lymphocyte % 43.7 % (19-41); Mean Corp Hgb Conc 33.4 g/gl (32-36); Mean Corpuscular Hgb 30.3 pg (27.0-32.0); Mean Corpuscular Volume 90.7 fL (81-99); Mean Platelet Vol. 9.5 fl (6.2-12.0); Monocyte# 0.53 X10^3/uL; Monocyte% 8.4 % (0-10); Neutrophil # 2.78 X10^3/uL (2.7-7.7); Neutrophil % 44.2 % (47-70); Platelet Count 256 K/mm3 (150-450); RBC Distribution Width CV 12.3 % (11.6-14.6); RBC Distribution Width SD 40.3 fl (35.1-43.9); Red Blood Count 4.39 M/mm3 (4.2-5.4); White Blood Count 6.3 K/mm3 (4.4-11.0)
[2018-11-10 06:04] LABS: Differential Indicated SCAN CRITERIA MET; POSITIVE COUNT NO; POSITIVE DIFFERENTIAL NO; POSITIVE MORPHOLOGY YES
[2018-11-10 07:30] VITALS: O2SAT 99
[2018-11-10 07:38] VITALS: BP 118/71; PULSE 75; RESP 16; TEMP 36.9; O2SAT 96
[2018-11-10] MEDS: Acetaminophen 325 MG Tablet 650 MG PO (09:06)
[2018-11-10 10:40] VITALS: PULSE 72
--- NOTE | 2018-11-10 10:54 | DCINST_ITS ---
- Discharge Diagnoses Current Active Problems: Current Active and Chronic Problems (Last Updated 11/08/18 @ 07:37 by Levi Son MD) Sepsis (Acute) Abscess (Acute) You will use the following diet at home:: No restrictions Your food should be the consistency of: Regular Your liquids should be the consistency of: Regular/Thin Discharge Activity: Return to Normal Activity Allergies/Adverse Reactions: Allergies latex Allergy (Verified 11/07/18 16:47) Rash Medications to take at Discharge Aripiprazole [Abilify] 7.5 mg PO QHS 11/07/18 Sertraline HCl [Zoloft] 125 mg PO QHS 11/07/18 0.9% Saline Lock 5 - 15 ml IV UD PRN syringe 11/10/18 Acetaminophen [Tylenol Tablet] 650 mg PO Q6H PRN PRN tablet 11/10/18 Doxycycline [Vibramycin] 100 mg PO BID #10 cap 11/10/18 The following prescriptions were given: Doxycycline [Vibramycin] 100 mg PO BID #10 cap Primary Care Physician: [facility] ,Out of [Primary Care Provider] - Please follow up with your Primary Care Physician in: 1 week Test Results: Test results from this visit will be discussed in further detail at your follow- up appointment, if applicable. Proposed Discharge Date: 11/10/18
[2018-11-10 11:12] VITALS: BP 99/64; PULSE 66; RESP 18; TEMP 36.8; O2SAT 97
[2018-11-10 11:32] VITALS: BP 99/64; PULSE 66; RESP 18; TEMP 36.8; O2SAT 97
--- NOTE | 2018-11-10 14:12 | DS.PCM_ITS ---
<Johnson Looney - Last Filed: 11/10/18 14:04> Discharge Date and Diagnosis Date of Admission: 11/07/18 Date of Discharge: 11/10/18 - Primary Discharge Diagnosis Acute sepsis 2/2 Acute cellulitis and abscess left thigh Obesity Depression Hospital Course and Treatment Operations: None Procedures: None Summary of Care Provided: Hospital Course: The patient is a 23 year old F with pmhx of depression and obesity who presented to the ER with c/o swelling of the left thigh. She had associated fever of 102.4. Earlier that day she had gone to the ER and had an I&D of that area for abscess, however was told to come back if she had fever. She had cut that area with a razor. She was found to be septic with tachycardia, fever, and leukocytosis. She was placed on vanc and zosyn and admitted to the med surg unit. She was provided with wound care. A wick was placed to facilitate drainage. She also had surrounding cellulitis. This was demarcated. Her fever resolved, erythema receded away from the demarcations gradually. Purulent drainage resolved. Wound cultures did not demonstrate significant growth of any bacteria. She was transitioned to PO abx, and will complete 10 doses of Doxycycline going home. She was instructed on appropriate wound care. Given her obesity and infection we checked an A1C while here - this came back at 4.8. She was discharged home in stable condition and will need follow up in a week with her PCP. This patient was seen by Johnson Looney PA-C under the supervision of Dr. Cooper [] - Physical Exam General: Alert, Oriented x3, Cooperative HEENT: Atraumatic, PERRLA, EOMI, Normocephalic Neck: Supple, No JVD, Negative Carotid Bruits Lungs: Clear to auscultation, Normal air movement Cardiovascular: Regular rate, No murmurs Abdomen: Bowel Sounds Present, Soft, Non Tender Extremities: No edema, Capillary Refill Less than 3 Seconds Skin: - - abscess open, nondraining. Musculoskeletal: No Tenderness to Palpation of Joints or Extremities Neurological: Cranial nerves II-XII grossly intact Psych/Mental Status: Normal Affect, Appropriate Vital Signs Temp Pulse Resp BP Pulse Ox 98.2 F 66 18 99/64 97 11/10/18 11:32 11/10/18 11:32 11/10/18 11:32 11/10/18 11:32 11/10/18 11:32 Oxygen Delivery Method Room Air Weight: 225 lb 15.934 oz Body Mass Index (BMI) 37.5 Intake and Output for Last 24 Hours 11/08/18 11/09/18 11/10/18 23:59 23:59 23:59 Intake Total 1154 / 1154 2850 / 2850 1577 / 1577 Output Total 200 / 200 1650 / 1650 Balance 954 / 954 1200 / 1200 1577 / 1577 Microbiology Past 72 Hours 11/07/18 23:40 Blood Culture - Preliminary Blood Culture (Wb) - Anticubital Right No growth in 48 hours. 11/07/18 21:50 Blood Culture - Preliminary Blood Culture (Wb) - Anticubital Left No growth in 48 hours. 11/08/18 13:10 Gram Stain - Final Wound - Leg, Left Wound Culture - Preliminary No growth-Final to follow Laboratory Tests Past 24 Hrs 11/10/18 05:00 WBC 6.3 RBC 4.39 Hgb 13.3 Hct 39.8 MCV 90.7 MCH 30.3 MCHC 33.4 RDW 12.3 RDW Differential 40.3 Plt Count 256 MPV 9.5 Immature Gran % (Auto) 0.500 Neut % (Auto) 44.2 L Lymph % (Auto) 43.7 H [place] % (Auto) 8.4 Eos % (Auto) 2.9 Baso % (Auto) 0.3 Absolute Neuts (auto) 2.8 Absolute Lymphs (auto) 2.75 Total Counted Not Reportable Discharge Diet: No Restrictions Discharge Activity: Return to Normal Activity Home Medications: Medications to take at Discharge Aripiprazole [Abilify] 7.5 mg PO QHS 11/07/18 Sertraline HCl [Zoloft] 125 mg PO QHS 11/07/18 0.9% Saline Lock 5 - 15 ml IV UD PRN syringe 11/10/18 Acetaminophen [Tylenol Tablet] 650 mg PO Q6H PRN PRN tablet 11/10/18 Doxycycline [Vibramycin] 100 mg PO BID #10 cap 11/10/18 Following Prescrptions Were Given to Patient: Doxycycline [Vibramycin] 100 mg PO BID #10 cap Primary Care Physician: [facility],Out of [Primary Care Provider] - Please follow up with your Primary Care Physician in: 1 week Disposition: Home Minutes spent on discharge:: 35 Patient Condition:: Stable Medical Necessity - Tobacco Use Smoking Status: Never smoker Meaningful Use Info Meaningful Use Diagnoses (Choose all that apply): None applicable <Jeri Cooper - Last Filed: 11/10/18 15:55> Hospital Course and Treatment Summary of Care Provided: Patient seen by Johnson Looney PA-C under my supervision The patient is a 23 year old F with a complaint of fever. She had been seen in the ED on the day prior to admission and had an incision and drainage of an abscess on her left upper inner thigh. She went home with p.o. Keflex but subsequently came back because her temperature went up to 102F. She denied any increased drainage from the wound. The ED, she was found to have elevated white cell count and metastases/criteria for sepsis. She was managed for sepsis due to abscess of the left inner thigh. She was started on IV vancomycin and cefazolin. Blood cultures were obtained and will cultures were also obtained. Patient's fever subsequently resolved and she remained afebrile for at least 48 hours. Wound cultures from blood cultures were both negative. She remained stable and was discharged home on 11/10/2018. She was given a prescription for p.o. doxycycline for 5 days. She is follow-up with her primary care doctor within 1 week. A1c check was 4.8. Patient seen and examined prior to discharge. She complained of one episode of vomiting overnight. Review of systems otherwise negative. Labs and vitals reviewed. Home medication reviewed and reconciled. o/e: Vital Signs Height 5 ft 5 in Weight: 225 lb 15.934 oz Weight in Pounds 226.0 lbs Pulse Ox 97 Temperature 98.2 F Pulse Rate 66 Respiratory Rate 18 Blood Pressure 99/64 Blood Pressure Position Sitting [] General: Alert, Oriented x3, Cooperative HEENT: Atraumatic, PERRLA, EOMI, Normocephalic Neck: Supple, No JVD, Negative Carotid Bruits Lungs: Clear to auscultation, Normal air movement Cardiovascular: Regular rate, No murmurs Abdomen: Bowel Sounds Present, Soft, Non Tender Extremities: No edema, Capillary Refill Less than 3 Seconds Skin: Ulcer/ Wound - left thigh abscess,s/p I&D, drainage, wound pack in place, erythema of left upper inner thigh has resolved. Musculoskeletal: No Tenderness to Palpation of Joints or Extremities Neurological: Cranial nerves II-XII grossly intact Psych/Mental Status: Normal Affect, Appropriate, Alert and oriented to time, place, person, mood and affect Plan is to dc home today on PO doxycycline x 5 days. To follow up with her primary care doctor within 1 week. Rest of Management as per Johnson Looney PA-C's note which I reviewed and endorsed. - Physical Exam Vital Signs Temp Pulse Resp BP Pulse Ox 98.2 F 66 18 99/64 97 11/10/18 11:32 11/10/18 11:32 11/10/18 11:32 11/10/18 11:32 11/10/18 11:32 Oxygen Delivery Method Room Air Weight: 225 lb 15.934 oz Body Mass Index (BMI) 37.5 Intake and Output for Last 24 Hours 11/08/18 11/09/18 11/10/18 23:59 23:59 23:59 Intake Total 1154 / 1154 2850 / 2850 1577 / 1577 Output Total 200 / 200 1650 / 1650 Balance 954 / 954 1200 / 1200 1577 / 1577 Microbiology Past 72 Hours 11/07/18 23:40 Blood Culture - Preliminary Blood Culture (Wb) - Anticubital Right No growth in 48 hours. 11/07/18 21:50 Blood Culture - Preliminary Blood Culture (Wb) - Anticubital Left No growth in 48 hours. 11/08/18 13:10 Gram Stain - Final Wound - Leg, Left Wound Culture - Preliminary No growth-Final to follow Laboratory Tests Past 24 Hrs 11/10/18 05:00 WBC 6.3 RBC 4.39 Hgb 13.3 Hct 39.8 MCV 90.7 MCH 30.3 MCHC 33.4 RDW 12.3 RDW Differential 40.3 Plt Count 256 MPV 9.5 Immature Gran % (Auto) 0.500 Neut % (Auto) 44.2 L Lymph % (Auto) 43.7 H [place] % (Auto) 8.4 Eos % (Auto) 2.9 Baso % (Auto) 0.3 Absolute Neuts (auto) 2.8 Absolute Lymphs (auto) 2.75 Total Counted Not Reportable Code Visit Inpatient E&M: 38558 Disch Hosp
--- NOTE | 2018-11-10 14:32 | NURSING ---
Addendum entered by Mikki Alexandre 11/10/18 14:53: Original Note: studfent nurses charting used for educational and learning purposed. reviewed by justina
== END 2018-11-10 12:39 | disposition home or self-care (01) | DRG 872 ==
LOC: ED 19:45 → MS3 22:47
PROVIDERS: Physician Assistant; Admitting Provider Hospitalist; Emergency Provider Emergency Medicine; Referring Provider Hospitalist; Visit Provider Student in an Organized Health Care Education/Training Program
DX: A41.9 Sepsis, unspecified organism (principal); L02.416 Cutaneous abscess of left lower limb; L03.116 Cellulitis of left lower limb; E66.9 Obesity, unspecified; Z68.37 Body mass index [BMI] 37.0-37.9, adult; F32.9 Major depressive disorder, single episode, unspecified
CPT/HCPCS: 36415; 80048; 80202; 83036; 83605; 85025; 87040; 87070; 87205; 87640; 94762; 97802; 99283; J7030; J7040; A4216; J2405

== ENCOUNTER 2019-05-28 10:58 | Emergency (ER) | payer OTHER, SELFPAY ==
[2018-11-07 23:40] VITALS: BMI 37.5
[2019-05-28 10:59] VITALS: BP 109/69; PULSE 100; RESP 18; TEMP 37; O2SAT 96; BMI 36.6
--- NOTE | 2019-05-28 11:26 | ED.VISSUMM ---
- ER Visit Summary Date of Service: 05/28/19 Chief Complaint: Nausea and vomiting History of Present Illness: The patient is a 23 F. And anxiety. Started again yesterday started having nausea vomiting. Really no significant diarrhea. She said after her first episode of vomiting she did not follow up some blood. This happened before. She is on a blood thinners. No melena. No bruising. No hematuria. Physical Examination: Young female no acute distress vital signs stable afebrile initial blood pressure 109/69. HEENT exam unremarkable. Moist week's membranes. Neck nontender no lymphadenopathy adenopathy. Lungs clear to auscultation bilaterally. Heart regular rhythm no murmur. Abdomen is soft nontender normal bowel sounds no peritoneal signs. Both right upper right lower quadrant unremarkable. No signs of obstruction. Moving all 4 extremities. Skin unremarkable. No bruising. Back nontender. Neurologically she is awake and alert with no focal motor deficits. Test Results: CBC shows WBC 6 and hemoglobin was normal at 14 with hematocrit of 42. Emergency Department Course and Treatment: Patient with nausea vomiting most likely viral syndrome. She did throw up some blood after her first episode of vomiting. This may be secondary to Ariela-Miles tear. Will obtain a CBC. She will be treated with IV fluids and IV Zofran. Repeat exam patient is doing well at 12:40 PM. Her nausea is resolved her abdomen is benign. With note of her test results and she is comfortable being discharged home. Treatment Plan: Zofran for nausea. Return if more bleeding. Disposition: Discharge Impression: Nausea vomiting viral syndrome Hematemesis secondary to Ariela-Miles tear This note was generated with [employer] dictation software. It may contain incorrect words, spelling, and punctuation that were not noted in review of the chart prior to signing ED Disposition - Plan for ED Patient: Referrals: [facility] Doctor,Out of [Primary Care Provider] -
[2019-05-28] MEDS: 0.9% Normal Saline 1,000 ML 1000 ML IV (11:31)
[2019-05-28] MEDS: Ondansetron 4 MG/2 ML Vial IV (11:31)
[2019-05-28 12:12] LABS: Hematocrit 42.5 % (37-47); Hemoglobin 14.7 g/dL (12.0-15.0); Mean Corp Hgb Conc 34.6 g/dL (32-36); Mean Corpuscular Volume 89.7 fL (81-99); Mean Platelet Vol. 9.3 fl (6.2-12.0); Platelet Count 296 K/mm3 (150-450); RBC Distribution Width CV 11.9 % (11.6-14.6); RBC Distribution Width SD 38.7 fl (35.1-43.9); Red Blood Count 4.74 M/mm3 (4.2-5.4); White Blood Count 6.4 K/mm3 (4.4-11.0)
--- NOTE | 2019-05-28 12:54 | DCINST.ED_ITS ---
ED Disposition - Plan for ED Patient: Disposition: Home or Assisted Living Instructions: VOMITING (8y-Adult), Ariela-Miles Tear Prescriptions: Ondansetron [Zofran Odt] 4 mg PO Q8H PRN PRN #7 tab PRN Reason: Nausea Prescription Printed Referrals: [facility] Doctor,Out of [Primary Care Provider] - As Needed Additional Instructions: Zofran as needed for nausea. Return if feeling worse or vomiting bladder or black or bloody stool. Plenty of fluids and rest.
[2019-05-28 13:03] VITALS: BP 113/72; PULSE 69; RESP 14; O2SAT 98
== END 2019-05-28 13:04 | disposition home or self-care (01) ==
PROVIDERS: Emergency Provider Emergency Medicine
DX: B34.9 Viral infection, unspecified (principal); K22.6 Gastro-esophageal laceration-hemorrhage syndrome; F32.9 Major depressive disorder, single episode, unspecified; F41.9 Anxiety disorder, unspecified
CPT/HCPCS: 85027; 96361; 96374; 99282; J7030; A4216; J2405